=== PATIENT | female | born 1965 | race Caucasian/White ===

== ENCOUNTER 2025-04-16 16:22 | Inpatient (IN) | payer OTHER ==
[2025-04-16 16:49] VITALS: BMI 26.4
[2025-04-16 17:15] LABS: ABSOLUTE IMMATURE GRANULOCYTES 0.05 x10^3/uL (0.0-0.031); BASOPHILS # 0.04 x10^3/uL (0.01-0.08); EOSINOPHIL % 1.6 % (0.7-5.8); EOSINOPHILS # 0.08 x10^3/uL (0.04-0.36); MCHC 31.6 g/dl (32.2-35.5); MEAN CELL VOLUME 90.4 fl (79.4-94.8); MEAN PLT VOLUME 10.1 fl (9.4-12.3); MONOCYTE # 0.29 x10^3/uL (0.24-0.86); MONOCYTE % 5.9 % (4.7-12.5); RDW 18.4 % (12.3-16.6)
[2025-04-16] MEDS: SODIUM CHLORIDE FOR INHALATION 3 ML VIAL.NEB IH ONE (17:31)
[2025-04-16 17:38] LABS: GLUCOSE,RANDOM 128.0 mg/dL (74-106)
[2025-04-16 17:39] LABS: CO2 27.0 mmol/L (21-32); TOT PROT 8.1 g/dl (6.4-8.2)
[2025-04-16 17:41] LABS: ALK PHOS 123.0 U/L (40-150)
[2025-04-16 17:44] LABS: CREATININE 3.96 mg/dL (0.55-1.3); SGOT/AST 29.0 U/L (5-34); SGPT/ALT 9.0 U/L (0-55)
[2025-04-16] MEDS ORDERED: LACTATED RINGERS SOLUTION 1000 ML INFUS.BAG IV ONE (17:45)
[2025-04-16 17:52] LABS: VENOUS BASE EXCESS 5.8 mmol/L (-2-2); VENOUS O2 SATURATION 63.8 % (70-80); VENOUS PCO2 61.0 mmHg (38-52); VENOUS PH 7.357 (7.310-7.410)
[2025-04-16] MEDS: SODIUM CHLORIDE 0.9% 500 ML INFUS.BAG IV ONE (18:11)
[2025-04-16] MEDS: ALBUTEROL SO4 2.5/IPRATROPIUM 0.5 INH SOL 3 ML VIAL.NEB. NEB SCH (18:48)
[2025-04-16 20:29] LABS: N-TERMINAL BNP 54168.0 pg/mL (0-299.9)
[2025-04-16] MEDS ORDERED: levETIRAcetam 500 MG/5 ML ORAL SOLUTION (UNIT-DOSE CUPS) ONE (22:32)
[2025-04-16] MEDS ORDERED: APIXABAN 2.5 MG TABLET ONE (22:32)
[2025-04-16] MEDS ORDERED: ATORVASTATIN CA 40 MG TABLET (FP) ONE (22:32)
[2025-04-16] MEDS: levETIRAcetam 500 MG/5 ML ORAL SOLUTION (UNIT-DOSE CUPS) GT SCH (23:13)
[2025-04-16] MEDS: ATORVASTATIN CA 40 MG TABLET (FP) GT SCH (23:13)
[2025-04-16] MEDS: VANCOMYCIN ORAL SOLUTION 125 MG/2.5 ML GT SCH (23:13)
[2025-04-16] MEDS: APIXABAN 2.5 MG TABLET GT SCH (23:13)
[2025-04-17] MEDS: BUDESONIDE/FORMETEROL FUMARATE 160/4.5 mcg INHALER IH SCH (00:22)
[2025-04-17] MEDS: METOPROLOL TARTRATE 25 MG TABLET (FP) GT SCH (00:23)
[2025-04-17] MEDS: ALBUTEROL SO4 2.5/IPRATROPIUM 0.5 INH SOL 3 ML VIAL.NEB. NEB PRN (02:02)
[2025-04-17 08:49] LABS: ABSOLUTE IMMATURE GRANULOCYTES 0.03 x10^3/uL (0.0-0.031); BASOPHILS # 0.05 x10^3/uL (0.01-0.08); EOSINOPHIL % 2.4 % (0.7-5.8); EOSINOPHILS # 0.10 x10^3/uL (0.04-0.36); MCHC 32.2 g/dl (32.2-35.5); MEAN CELL VOLUME 88.3 fl (79.4-94.8); MEAN PLT VOLUME 10.1 fl (9.4-12.3); MONOCYTE # 0.35 x10^3/uL (0.24-0.86); MONOCYTE % 8.4 % (4.7-12.5); RDW 18.0 % (12.3-16.6)
[2025-04-17 09:13] LABS: GLUCOSE,RANDOM 93.0 mg/dL (74-106)
[2025-04-17 09:15] LABS: CO2 24.0 mmol/L (21-32)
[2025-04-17 09:19] LABS: CREATININE 4.38 mg/dL (0.55-1.3)
[2025-04-17] MEDS ORDERED: PATIENT'S OWN MEDICATION (NON-FORMULARY) (Omeprazole [Omeprazole] 20 MG Tab.Rap.Dr) GT SCH (10:00)
[2025-04-17] MEDS: FOLIC ACID 1 MG TABLET (FP) GT SCH (10:21)
[2025-04-17] MEDS: FAMOTIDINE 20 MG/2.5 ML ORAL LIQUID GT SCH (11:37)
[2025-04-17] MEDS: BICTEGRAV/EMTRICIT/TENOFOV (BIKTARVY) 50-200-25 MG TABLET GT SCH (11:37)
[2025-04-17] MEDS: ATOVAQUONE 750 MG/5 ML (UNIT-DOSE PACKAGING) GT SCH (11:38)
[2025-04-17] MEDS: FERROUS SO4 300 MG/5 ML ORAL SOLN UNIT DOSE CUPS GT SCH (11:38)
[2025-04-17] MEDS: FUROSEMIDE 40 MG/4 ML INJECTABLE VIAL IVPUSH ONE (16:42)
[2025-04-18] MEDS: VANCOMYCIN ORAL SOLUTION 125 MG/2.5 ML GT SCH (06:21)
[2025-04-18] MEDS: LOPERAMIDE HCL 2 MG CAPSULE GT PRN (10:53)
[2025-04-18] MEDS: FLUoxetine HCL 20 MG/5 ML 120 BOTTLE PO SCH (11:46)
[2025-04-18] MEDS: BANATROL PLUS POWDER PACKET PO SCH (13:46)
[2025-04-18] MEDS ORDERED: SODIUM CHLORIDE 250 ML IV PRN (16:00)
[2025-04-18] MEDS: EPOETIN ALFA-EPBX 10,000 UNIT/ML VIAL IVPUSH ONE (17:09)
[2025-04-19 09:40] LABS: ABSOLUTE IMMATURE GRANULOCYTES 0.01 x10^3/uL (0.0-0.031); BASOPHILS # 0.04 x10^3/uL (0.01-0.08); EOSINOPHIL % 4.8 % (0.7-5.8); EOSINOPHILS # 0.17 x10^3/uL (0.04-0.36); MCHC 30.6 g/dl (32.2-35.5); MEAN CELL VOLUME 90.9 fl (79.4-94.8); MEAN PLT VOLUME 10.8 fl (9.4-12.3); MONOCYTE # 0.41 x10^3/uL (0.24-0.86); MONOCYTE % 11.5 % (4.7-12.5); RDW 18.6 % (12.3-16.6)
[2025-04-19 09:54] LABS: GLUCOSE,RANDOM 153.0 mg/dL (74-106)
[2025-04-19 09:55] LABS: CO2 30.0 mmol/L (21-32)
[2025-04-19 09:59] LABS: CREATININE 2.99 mg/dL (0.55-1.3)
[2025-04-19] MEDS: diphenhydrAMINE HCL 12.5 MG/5 ML UNIT-DOSE CUPS GT PRN (12:39)
[2025-04-19 18:07] LABS: LDL CHOLESTEROL (ONLY SJRH) 68.0 mg/dL (5-100)
[2025-04-20] MEDS ORDERED: SODIUM CHLORIDE 250 ML IV PRN (12:22)
[2025-04-20] MEDS: EPOETIN ALFA-EPBX 10,000 UNIT/ML VIAL IVPUSH ONE (13:45)
[2025-04-20] MEDS: EPOETIN ALFA 10,000 UNIT/1 ML VIAL SQ SCH (19:33)
[2025-04-20] MEDS: FLU VACC TS2025-26(6MOS UP)/PF 45 MCG/0.5 ML SYRINGE IM ONE (22:21)
[2025-04-21] MEDS: SCOPOLAMINE HYDROBROMIDE 1 PATCH PATCH.TD72 TD SCH (13:15)
[2025-04-21] MEDS ORDERED: HALOPERIDOL LACTATE 5 MG/ML IM PRN (16:54)
[2025-04-21] MEDS: amLODIPine BESYLATE 5 MG TABLET (FP) GT ONE (18:26)
[2025-04-22] MEDS ORDERED: SODIUM CHLORIDE 250 ML IV PRN (13:00)
[2025-04-22] MEDS: EPOETIN ALFA-EPBX 4,000 UNIT/ML VIAL IVPUSH ONE (14:03)
[2025-04-22] MEDS: amLODIPine BESYLATE 5 MG TABLET (FP) GT ONE (18:06)
[2025-04-23] MEDS: ACETAMINOPHEN 650 MG/20.3 ML ORAL SOLUTION (CUPS) GT PRN (06:56)
[2025-04-23 10:45] LABS: ABSOLUTE IMMATURE GRANULOCYTES 0.03 x10^3/uL (0.0-0.031); BASOPHILS # 0.05 x10^3/uL (0.01-0.08); EOSINOPHIL % 5.5 % (0.7-5.8); EOSINOPHILS # 0.23 x10^3/uL (0.04-0.36); MCHC 29.7 g/dl (32.2-35.5); MEAN CELL VOLUME 94.0 fl (79.4-94.8); MEAN PLT VOLUME 10.2 fl (9.4-12.3); MONOCYTE # 0.26 x10^3/uL (0.24-0.86); MONOCYTE % 6.2 % (4.7-12.5); RDW 19.6 % (12.3-16.6)
[2025-04-23 11:35] LABS: GLUCOSE,RANDOM 145.0 mg/dL (74-106)
[2025-04-23 11:36] LABS: CO2 31.0 mmol/L (21-32)
[2025-04-23 11:41] LABS: CREATININE 2.95 mg/dL (0.55-1.3)
[2025-04-23] MEDS: amLODIPine BESYLATE 5 MG TABLET (FP) PO SCH (11:43)
[2025-04-25 10:03] LABS: MCHC 29.7 g/dl (32.2-35.5); MEAN CELL VOLUME 92.1 fl (79.4-94.8); MEAN PLT VOLUME 10.4 fl (9.4-12.3); RDW 18.6 % (12.3-16.6)
[2025-04-25 10:30] LABS: GLUCOSE,RANDOM 94.0 mg/dL (74-106)
[2025-04-25 10:32] LABS: CO2 29.0 mmol/L (21-32)
[2025-04-25 10:36] LABS: CREATININE 4.99 mg/dL (0.55-1.3)
[2025-04-25] MEDS ORDERED: SODIUM CHLORIDE 250 ML IV PRN (11:00)
[2025-04-25] MEDS: EPOETIN ALFA-EPBX 4,000 UNIT/ML VIAL IVPUSH ONE (12:04)
[2025-04-26] MEDS ORDERED: SODIUM CHLORIDE 250 ML IV PRN (10:42)
[2025-04-27 07:48] LABS: MCHC 30.4 g/dl (32.2-35.5); MEAN CELL VOLUME 90.7 fl (79.4-94.8); MEAN PLT VOLUME 10.9 fl (9.4-12.3); RDW 18.3 % (12.3-16.6)
[2025-04-27] MEDS: EPOETIN ALFA-EPBX 3,000 UNIT/ML VIAL SQ ONE (10:38)
[2025-04-27 11:35] LABS: GLUCOSE,RANDOM 139.0 mg/dL (74-106); TOT PROT 7.4 g/dl (6.4-8.2)
[2025-04-27 11:36] LABS: CO2 29.0 mmol/L (21-32)
[2025-04-27 11:38] LABS: ALK PHOS 130.0 U/L (40-150)
[2025-04-27 11:40] LABS: SGOT/AST 15.0 U/L (5-34); SGPT/ALT 10.0 U/L (0-55)
[2025-04-27 11:41] LABS: CREATININE 4.01 mg/dL (0.55-1.3)
[2025-04-28 22:49] VITALS: RESP 18
[2025-04-29] MEDS: EPOETIN ALFA-EPBX 10,000 UNIT/ML VIAL IVPUSH ONE (09:44)
[2025-04-29] MEDS ORDERED: SODIUM CHLORIDE 250 ML IV PRN (10:00)
[2025-04-29 14:27] VITALS: TEMP 98.1
[2025-04-29 14:28] VITALS: BP 150/92; PULSE 76
== END 2025-04-29 15:33 | DRG 205 ==
LOC: JER 16:22 → JERBED 19:47 → J4S 23:59 → OBSVTOIN 04-18 10:33
PROVIDERS: ADMIT Internal Medicine; ATTEND Internal Medicine
PROC: 5A1D70Z Performance of Urinary Filtration, Intermittent, Less than 6 Hours Per Day (ICD-10-PCS; principal; 2025-04-19)
DX: J95.09 Other tracheostomy complication (principal); I50.33 Acute on chronic diastolic (congestive) heart failure; J96.20 Acute and chronic respiratory failure, unspecified whether with hypoxia or hypercapnia; N18.6 End stage renal disease; R53.2 Functional quadriplegia; T17.490A Other foreign object in trachea causing asphyxiation, initial encounter; E87.1 Hypo-osmolality and hyponatremia; B20 Human immunodeficiency virus [HIV] disease; I24.89 Other forms of acute ischemic heart disease; I13.2 Hypertensive heart and chronic kidney disease with heart failure and with stage 5 chronic kidney disease, or end stage renal disease; E44.0 Moderate protein-calorie malnutrition; I25.10 Atherosclerotic heart disease of native coronary artery without angina pectoris; G40.909 Epilepsy, unspecified, not intractable, without status epilepticus; J45.909 Unspecified asthma, uncomplicated; Z93.1 Gastrostomy status; Z99.2 Dependence on renal dialysis; D63.8 Anemia in other chronic diseases classified elsewhere; L89.150 Pressure ulcer of sacral region, unstageable; R79.89 Other specified abnormal findings of blood chemistry; I48.0 Paroxysmal atrial fibrillation; Y83.8 Other surgical procedures as the cause of abnormal reaction of the patient, or of later complication, without mention of misadventure at the time of the procedure; Z68.26 Body mass index [BMI] 26.0-26.9, adult
CPT/HCPCS: 36415; 71045-TC-FY; 80048; 80053; 80061; 80177; 80186; 82803; 82962; 83036; 83880; 84443; 84484; 85025; 85027; 87637-QW; 93005; 93010; 94640; 97116-GP; 97161-GP; 99285-25; G0378; Q5106